=== PATIENT | female | born 1985 | race Caucasian/White ===

== ENCOUNTER 2021-05-12 04:28 | Emergency (ER) | payer OTHER ==
[~2021-05-12] VITALS: Ht 162.6 cm; Wt 60.0 kg
[2021-05-12] MEDS ORDERED: HYDROcodone/APAP 5/325 TABLET ONE (05:16)
[2021-05-12] MEDS ORDERED: PROMETHAZINE 25 MG/ML, 1ML ONE (05:16)
--- NOTE | 2021-05-12 05:25 | NUR ---
Pt refusing all vitals at this time
--- NOTE | 2021-05-12 05:26 | NUR ---
pt tolerated IM med well, will wait for nausea to subside before admin of pain med
[2021-05-12] MEDS ORDERED: BICILLIN-LA 1,200,000 UNITS/2 ML IM ONE (05:30)
[2021-05-12] MEDS ORDERED: HYDROcodone/APAP 5/325 TABLET PO ONE (05:30)
[2021-05-12] MEDS ORDERED: PROMETHAZINE 25 MG/ML, 1ML IM ONE (05:30)
[2021-05-12 05:40] LABS: MICROSCOPIC AUTO
--- NOTE | 2021-05-12 06:45 | NUR ---
report from JULIA Degroot
[2021-05-12 06:54] VITALS: BP 153/108
--- NOTE | 2021-05-12 07:02 | NUR ---
Patient is resting comfortably in bed, respirations even and unlabored. Bed in lowest, rails engaged, call light on lap. Vital Signs within normal limits. Friend at bs. WCCEASAR.
--- NOTE | 2021-05-12 08:16 | NUR ---
Patient given discharge instructions and RX, they have confirmed that they understand the instructions. Patient ambulatory with steady gait.
== END 2021-05-12 08:17 | disposition home or self-care (01) ==
LOC: ED 08:11
DX: N30.00 Acute cystitis without hematuria (principal); K02.9 Dental caries, unspecified; R11.2 Nausea with vomiting, unspecified; R19.7 Diarrhea, unspecified; F17.200 Nicotine dependence, unspecified, uncomplicated
CPT/HCPCS: 81001; 87077; 87086; 96372; 99284; J0561; J2550; 87186